=== PATIENT | male | born 1965 | race Caucasian/White ===

== ENCOUNTER 2017-01-05 20:10 | Inpatient (IN) | payer MEDICAID ==
[~2017-01-05] VITALS: Ht 180.3 cm; Wt 122.0 kg
[~2017-01-05 20:10] MED LIST: ALBU18; ASPI81CH43 PO; BENA5TAB5; METF-371; METO50TA7; NOR10T; POTA-167; PRAS10TA6; SIMV20TA90; TRAM-297
[2017-01-05 20:45] LABS: Basophils # (auto) 0.1 uL; Basophils % (auto) 0.6 % (0.0-2.0); CONDITION Y; DEFINITIVE SEE PRINTOUT; Eosinophils # (auto) 0.8 uL; Eosinophils % (auto) 8.3 % (0.0-7.0); Hematocrit 47.3 % (41.0-53.0); Hemoglobin 15.7 g/dL (13.5-17.5); Lymphocytes # (auto) 3.2 uL; Lymphocytes % (auto) 31.9 % (10.0-50.0); Mean Corpuscular Hemoglobin 29.6 pg (28.0-32.0); Mean Corpuscular Hgb Conc. 33.2 g/dL (32.0-36.0); Mean Corpuscular Volume 89.2 fL (80.0-100.0); Mean Platelet Volume 9.8 fL (7.4-10.4); Monocytes # (auto) 0.8 uL; Monocytes % (auto) 8.2 % (0.0-12.0); Neutrophils # (auto) 5.2 uL; Platelet Count (auto) 299 10^3/uL (140-450); Red Cell Distribution Width 13.1 % (11.6-16.0); White Blood Cell 10.1 10^3/uL (4.4-10.8)
[2017-01-05 21:08] LABS: INR 1.01 (0.9-1.15); Partial Thromboplastin Time 34.5 sec (22.64-33.71)
[2017-01-05 21:21] LABS: Albumin 3.7 g/dL (3.4-5.0); Anion Gap 10 (5-15); Aspartate Aminotransferase 28 U/L (15-37); BUN/Creatinine Ratio 10.5; Blood Urea Nitrogen 10 mg/dL (7-18); Calcium 8.5 mg/dL (8.5-10.1); Carbon Dioxide 26 mmol/L (21-32); Chloride 107 mmol/L (98-107); GFR African American 107 mL/min; GFR Non-African American 88 mL/min; Glucose 119 mg/dL (74-106); Magnesium 2.4 mg/dL (1.6-2.6); Potassium 4.1 mmol/L (3.5-5.1); Sodium 143 mmol/L (136-145)
[2017-01-05 21:28] LABS: Alkaline Phosphatase 59 U/L (45-117); Bilirubin, Total 0.4 mg/dL (0.2-1.0); Total Protein 7.3 g/dL (6.4-8.2)
[2017-01-05] MEDS ORDERED: MORPHINE SULFATE 4 MG/ML SYRG IV ONE (21:45)
[2017-01-05] MEDS ORDERED: ASPirin 81 mg TAB PO ONE (21:45)
[2017-01-05] MEDS ORDERED: NITROGLYCERIN 0.4 MG SL TAB SL PRN (21:45)
[2017-01-06] MEDS ORDERED: IPRATROPIUM BROM 0.5 MG/2.5ML INH SOL NEB ONE
[2017-01-06] MEDS ORDERED: ALBUTEROL SULF 2.5 MG/0.5ML(0.5%) NEB SOLN NEB ONE
[2017-01-06] MEDS ORDERED: LORazepam 0.5 MG TAB PO PRN (00:45)
[2017-01-06] MEDS ORDERED: ONDANSETRON HCL 4 MG/2 ML VIAL IV PRN (00:45)
[2017-01-06] MEDS ORDERED: LACTULOSE 20Gm/30ML SOLN PO PRN (00:45)
[2017-01-06] MEDS ORDERED: MORPHINE SULFATE 4 MG/ML SYRG IV PRN ×2 (00:45)
[2017-01-06] MEDS ORDERED: NITROGLYCERIN 0.4 MG SL TAB SL PRN (00:45)
[2017-01-06] MEDS ORDERED: DEXTROSE (50%) 50ML SYRG IV PRN (00:45)
[2017-01-06] MEDS ORDERED: ACETAMINOPHEN 500 MG TAB PO PRN (00:45)
[2017-01-06] MEDS: SODIUM CHLORIDE 0.9% 1,000 ML IV SCH ×2 (01:11→13:58)
[2017-01-06] MEDS: HYDROcodone-ACET 5/325MG TAB PO PRN ×3 (02:10→18:30)
[2017-01-06 02:30] VITALS: BP 136/92
[2017-01-06 02:44] LABS: Cholesterol 97 mg/dL (< 200); HDL Cholesterol 45 mg/dL (40-59); LDL Cholesterol 47 mg/dL (< 100); Triglycerides 120 mg/dL (< 150)
[2017-01-06] MEDS ORDERED: ASPI-231 PO (03:51)
[2017-01-06] MEDS ORDERED: BENA5TAB5 PO (03:51)
[2017-01-06] MEDS ORDERED: HYDR-4072 PO (03:51)
[2017-01-06] MEDS ORDERED: METO50TA7 PO (03:51)
[2017-01-06] MEDS ORDERED: SIMV10TA84 PO (03:51)
[2017-01-06 05:00] VITALS: BP 115/69
[2017-01-06 05:14] LABS: Urine Bilirubin Negative (Negative); Urine Blood Negative /uL (Negative); Urine Color Yellow (Yellow); Urine Glucose Normal (Normal); Urine Mucus FEW (None Seen); Urine Nitrite Negative (Negative); Urine RBC 2 /hpf (0 - 3); Urine Squamous Epithelial Cell FEW /hpf (<5); Urine pH 5.5 (5.0-8.0)
[2017-01-06 05:15] LABS: Urine Ketone 1+ (Negative)
[2017-01-06] MEDS: ACCU-CHEK COMFORT CURVE STRIP VI SCH ×3 (06:38→17:00)
[2017-01-06] MEDS: InsuLIN REG 1unit/0.01ml Soln (100units/ml) SC SCH ×3 (06:38→17:00)
[2017-01-06 09:00] VITALS: BP 136/82
[2017-01-06] MEDS ORDERED: METOPROLOL SUCCINATE XL 50 MG TAB PO SCH (10:00)
[2017-01-06] MEDS ORDERED: PANTOPRAZOLE 40 MG TAB PO SCH (10:00)
[2017-01-06] MEDS ORDERED: ASPirin 81 mg TAB PO SCH ×2 (10:00)
[2017-01-06 13:00] VITALS: BP 126/76
[2017-01-06 17:00] VITALS: BP 126/88
[2017-01-06 18:15] VITALS: BP 126/88
[2017-01-06] MEDS ORDERED: ATORVASTATIN 20 MG TAB PO SCH (22:00)
== END 2017-01-06 17:00 | disposition home or self-care (01) | DRG 198 ==
LOC: ER 20:11 → TELE 20:12 → TELE-CENTR 01-06 02:25 → CENTRAL 01-06 02:30 → TELE-CENTR 01-06 02:30
PROVIDERS: ADMIT Internal Medicine; ATTEND Internal Medicine
DX: R07.9 Chest pain, unspecified (principal); I25.10 Atherosclerotic heart disease of native coronary artery without angina pectoris; I11.9 Hypertensive heart disease without heart failure; K27.9 Peptic ulcer, site unspecified, unspecified as acute or chronic, without hemorrhage or perforation; E78.5 Hyperlipidemia, unspecified; K21.9 Gastro-esophageal reflux disease without esophagitis; E11.9 Type 2 diabetes mellitus without complications; J45.909 Unspecified asthma, uncomplicated; Z79.82 Long term (current) use of aspirin; Z79.84 Long term (current) use of oral hypoglycemic drugs; Z79.899 Other long term (current) drug therapy; Z82.49 Family history of ischemic heart disease and other diseases of the circulatory system; Z95.5 Presence of coronary angioplasty implant and graft
CPT/HCPCS: 36415; 71020; 74176; 80053; 80061; 80307; 81001; 82550; 82962; 83036; 83735; 84443; 84484; 85025; 85379; 85610; 85652; 85730; 86141; 93005; 94640; 96374

== ENCOUNTER 2017-01-15 09:14 | Emergency (ER) | payer MEDICAID ==
[~2017-01-15] VITALS: Ht 180.3 cm; Wt 122.9 kg
[~2017-01-15 09:14] MED LIST changes: +ASPI-231 PO; +BENA5TAB5 PO; +HYDR-4072 PO; +METO50TA7 PO; +SIMV10TA84 PO
[2017-01-15 09:55] LABS: Basophils # (auto) 0 uL; Basophils % (auto) 0.5 % (0.0-2.0); CONDITION Y; Eosinophils # (auto) 0.7 uL; Eosinophils % (auto) 8.3 % (0.0-7.0); Hematocrit 47.6 % (41.0-53.0); Hemoglobin 16.3 g/dL (13.5-17.5); Lymphocytes # (auto) 1.7 uL; Lymphocytes % (auto) 20.3 % (10.0-50.0); Mean Corpuscular Hgb Conc. 34.1 g/dL (32.0-36.0); Mean Corpuscular Volume 88.1 fL (80.0-100.0); Mean Platelet Volume 10.1 fL (7.4-10.4); Monocytes # (auto) 0.6 uL; Neutrophils # (auto) 5.2 uL; Neutrophils % (auto) 63.9 % (37.0-80.0); Platelet Count (auto) 315 10^3/uL (140-450); Red Cell Distribution Width 12.9 % (11.6-16.0); White Blood Cell 8.1 10^3/uL (4.4-10.8)
[2017-01-15 10:13] LABS: Albumin 3.8 g/dL (3.4-5.0); BUN/Creatinine Ratio 14.3; Bilirubin, Total 0.5 mg/dL (0.2-1.0); Total Protein 7.5 g/dL (6.4-8.2)
[2017-01-15 10:27] LABS: Urine Bilirubin Negative (Negative); Urine Blood Negative /uL (Negative); Urine Color Yellow (Yellow); Urine Glucose Normal (Normal); Urine Ketone Negative (Negative); Urine Mucus FEW (None Seen); Urine Nitrite Negative (Negative); Urine RBC 1 /hpf (0 - 3); Urine Squamous Epithelial Cell FEW /hpf (<5)
[2017-01-15] MEDS ORDERED: SODIUM CHLORIDE 0.9% 1,000 ML IVB ONE (10:34)
[2017-01-15] MEDS ORDERED: KETOROLAC TROMETH 30 MG/ML 1ML VIAL IV ONE (10:45)
[2017-01-15 11:25] VITALS: BP 123/71
== END 2017-01-15 17:42 | disposition home or self-care (01) ==
LOC: ER 09:14 → EDBD 09:14 → ER 17:42
DX: M54.9 Dorsalgia, unspecified (principal); R10.9 Unspecified abdominal pain; E11.9 Type 2 diabetes mellitus without complications; I10 Essential (primary) hypertension; I25.10 Atherosclerotic heart disease of native coronary artery without angina pectoris; J45.909 Unspecified asthma, uncomplicated; K21.9 Gastro-esophageal reflux disease without esophagitis; Z87.11 Personal history of peptic ulcer disease; Z98.61 Coronary angioplasty status
CPT/HCPCS: 36415; 74176; 80053; 81001; 85025; 96361; 96374; 99285; J1885; J7030

== ENCOUNTER 2017-08-19 14:53 | Emergency (ER) | payer MEDICAID ==
[~2017-08-19] VITALS: Ht 180.3 cm; Wt 117.9 kg
[2017-08-19 15:13] VITALS: BP 127/81
[2017-08-19 15:31] LABS: Basophils # (auto) 0.1 uL; Basophils % (auto) 0.6 % (0.0-2.0); Eosinophils # (auto) 0.7 uL; Eosinophils % (auto) 7.8 % (0.0-7.0); Hematocrit 47.8 % (41.0-53.0); Hemoglobin 16.3 g/dL (13.5-17.5); Lymphocytes # (auto) 2.1 uL; Mean Corpuscular Hemoglobin 30.8 pg (28.0-32.0); Mean Corpuscular Hgb Conc. 34.1 g/dL (32.0-36.0); Mean Corpuscular Volume 90.3 fL (80.0-100.0); Monocytes # (auto) 0.6 uL; Monocytes % (auto) 7.4 % (0.0-12.0); Neutrophils # (auto) 5.2 uL; Neutrophils % (auto) 60.2 % (37.0-80.0); Platelet Count (auto) 254 10^3/uL (140-450); Red Blood Cells 5.29 10^6/uL (4.5-5.90); Red Cell Distribution Width 12.6 % (11.8-14.3); White Blood Cell 8.6 10^3/uL (4.4-10.8)
[2017-08-19 15:51] LABS: Alanine Aminotransferase 42 U/L (16-61); Albumin 3.8 g/dL (3.4-5.0); Anion Gap 9 (5-15); Aspartate Aminotransferase 28 U/L (15-37); BUN/Creatinine Ratio 7.3; Blood Urea Nitrogen 7 mg/dL (7-18); Calcium 8.8 mg/dL (8.5-10.1); Carbon Dioxide 24 mmol/L (21-32); Chloride 107 mmol/L (98-107); GFR African American 106 mL/min; GFR Non-African American 87 mL/min; Glucose 98 mg/dL (74-106); Potassium 4.1 mmol/L (3.5-5.1); Sodium 140 mmol/L (136-145)
[2017-08-19 15:56] LABS: Alkaline Phosphatase 45 U/L (45-117); Bilirubin, Total 0.5 mg/dL (0.2-1.0); Total Protein 7.5 g/dL (6.4-8.2)
[2017-08-19] MEDS ORDERED: ASPirin 81 mg TAB PO ONE (16:00)
[2017-08-19] MEDS ORDERED: PANTOPRAZOLE 40 MG/10 ML VIAL IV ONE (17:15)
== END 2017-08-19 18:58 | disposition home or self-care (01) ==
LOC: EDBD 14:53 → ER 14:53
DX: R07.89 Other chest pain (principal); I25.10 Atherosclerotic heart disease of native coronary artery without angina pectoris; I10 Essential (primary) hypertension; E11.9 Type 2 diabetes mellitus without complications; J45.909 Unspecified asthma, uncomplicated; K21.9 Gastro-esophageal reflux disease without esophagitis; E78.5 Hyperlipidemia, unspecified; Z79.82 Long term (current) use of aspirin; Z87.11 Personal history of peptic ulcer disease
CPT/HCPCS: 36415; 71046; 80053; 83735; 84484; 85025; 93005; 94761; 96374; 99285; C9113

== ENCOUNTER 2018-06-18 02:17 | Emergency (ER) | payer MEDICAID ==
[~2018-06-18] VITALS: Ht 180.3 cm; Wt 90.7 kg
[~2018-06-18 02:17] MED LIST changes: +MET5XLT; +MET5XLT PO; -METO50TA7; -METO50TA7 PO
[2018-06-18 02:40] VITALS: BP 125/85
== END 2018-06-18 04:56 | disposition home or self-care (01) ==
LOC: EDBD 02:17 → ER 02:19
DX: K06.8 Other specified disorders of gingiva and edentulous alveolar ridge (principal); I10 Essential (primary) hypertension; J45.909 Unspecified asthma, uncomplicated; E11.9 Type 2 diabetes mellitus without complications; K21.9 Gastro-esophageal reflux disease without esophagitis; E78.5 Hyperlipidemia, unspecified; I25.810 Atherosclerosis of coronary artery bypass graft(s) without angina pectoris; Z87.11 Personal history of peptic ulcer disease; Z79.82 Long term (current) use of aspirin; Z79.899 Other long term (current) drug therapy

== ENCOUNTER 2021-08-17 19:40 | Inpatient (IN) | payer MEDICAID ==
[~2021-08-17] VITALS: Ht 180.3 cm; Wt 108.8 kg
[~2021-08-17 19:40] MED LIST changes: -ASPI-231 PO; +ASPI1TAB20 PO; -BENA5TAB5; -BENA5TAB5 PO; +BENA5TAB9; +BENA5TAB9 PO; -MET5XLT; -MET5XLT PO; +METO-6; +METO-6 PO; +PRAS10TA18; -PRAS10TA6; +SIMV20TA2; -SIMV20TA90
[2021-08-17 21:19] LABS: Basophils # (auto) 0.1 10 ^3/uL (0-0.2); Basophils % (auto) 0.8 % (0.0-2.0); Eosinophils # (auto) 0.7 10 ^3/uL (0-0.8); Eosinophils % (auto) 7.3 % (0.0-7.0); Hematocrit 47.2 % (41.0-53.0); Hemoglobin 16.3 g/dL (13.5-17.5); Lymphocytes # (auto) 2.1 10 ^3/uL (0.4-5.4); Lymphocytes % (auto) 23.6 % (10.0-50.0); Mean Corpuscular Hemoglobin 31.3 pg (28.0-32.0); Mean Corpuscular Hgb Conc. 34.6 g/dL (32.0-36.0); Mean Corpuscular Volume 90.6 fL (80.0-100.0); Monocytes % (auto) 10.5 % (0.0-12.0); Neutrophils # (auto) 5.3 10 ^3/uL (1.6-8.6); Neutrophils % (auto) 57.8 % (37.0-80.0); Nucleated Red Blood Cells % 0.1 %; Red Blood Cells 5.21 10^6/uL (4.5-5.90); Red Cell Distribution Width 12.5 % (11.8-14.3); White Blood Cell 9.1 10^3/uL (4.4-10.8)
[2021-08-17 21:29] LABS: Albumin 3.6 g/dL (3.4-5.0); BUN/Creatinine Ratio 9.7; Potassium 4.2 mmol/L (3.5-5.1)
[2021-08-17 21:34] LABS: Bilirubin, Total 0.5 mg/dL (0.2-1.0); Total Protein 6.9 g/dL (6.4-8.2)
[2021-08-18] MEDS ORDERED: DOCUSATE SOD 100 MG CAP PO PRN (00:30)
[2021-08-18] MEDS ORDERED: DEXTROSE (50%) 50ML SYRG IV PRN (00:30)
[2021-08-18] MEDS ORDERED: ACETAMINOPHEN 325 MG TAB PO PRN (00:30)
[2021-08-18] MEDS ORDERED: ONDANSETRON HCL 4 MG/2 ML VIAL IV PRN (00:30)
[2021-08-18] MEDS ORDERED: NITROGLYCERIN 0.4 MG SL TAB SL PRN (00:30)
[2021-08-18] MEDS ORDERED: MORPHINE SULFATE INJECTION 2 MG/ML SYRG ONE (02:46)
[2021-08-18] MEDS ORDERED: ONDANSETRON HCL 4 MG/2 ML VIAL ONE (02:46)
[2021-08-18] MEDS: MORPHINE SULFATE INJECTION 2 MG/ML SYRG IV PRN ×2 (03:06→15:00)
[2021-08-18] MEDS ORDERED: HYDROcodone-ACET 5/325MG TAB ONE (04:29)
[2021-08-18] MEDS: HYDROcodone-ACET 5/325MG TAB PO PRN ×2 (04:54→12:23)
[2021-08-18] MEDS: SODIUM CHLOR 0.9% PF (SALINE LOCK) 10ML VIAL/SYR IV SCH ×2 (06:00→12:06)
[2021-08-18] MEDS: InsuLIN REG 1unit/0.01ml Soln (100units/ml) SC SCH ×3 (06:38→17:00)
[2021-08-18 07:10] VITALS: BP 118/76
[2021-08-18] MEDS: ACCU-CHEK COMFORT CURVE STRIP VI SCH ×3 (07:10→17:00)
[2021-08-18 08:00] VITALS: BP 118/76
[2021-08-18] MEDS ORDERED: INFLUENZA QUAD 2021-2022 0.5 ML SYRG IM ONE (08:15)
[2021-08-18] MEDS ORDERED: BENA40TA8 PO (08:15)
[2021-08-18] MEDS ORDERED: CARV6.2551 PO (08:15)
[2021-08-18] MEDS ORDERED: TRIA75TA55 PO (08:15)
[2021-08-18] MEDS ORDERED: ADENOSINE 91 MG in GIVE UN-DILUTED 0 ML IV ONE (08:45)
[2021-08-18 09:00] VITALS: BP 118/76
[2021-08-18] MEDS ORDERED: ASPirin 81 mg TAB PO SCH (10:00)
[2021-08-18] MEDS ORDERED: METOPROLOL TARTRATE 50 MG TAB PO SCH (10:00)
[2021-08-18] MEDS ORDERED: FAMOTIDINE (10MG/ML) 2ML VL IV SCH (10:00)
[2021-08-18] MEDS ORDERED: ENOXAPARIN SOD 40 MG/0.4 ML SYRINGE SC SCH (10:00)
[2021-08-18 12:14] LABS: Basophils # (auto) 0.1 10 ^3/uL (0-0.2); Basophils % (auto) 0.6 % (0.0-2.0); Eosinophils # (auto) 0.5 10 ^3/uL (0-0.8); Eosinophils % (auto) 6.3 % (0.0-7.0); Hematocrit 45.2 % (41.0-53.0); Hemoglobin 15.5 g/dL (13.5-17.5); Lymphocytes % (auto) 23.7 % (10.0-50.0); Mean Corpuscular Hgb Conc. 34.2 g/dL (32.0-36.0); Mean Corpuscular Volume 90.6 fL (80.0-100.0); Monocytes # (auto) 0.7 10 ^3/uL (0-1.3); Monocytes % (auto) 8.4 % (0.0-12.0); Neutrophils # (auto) 5.2 10 ^3/uL (1.6-8.6); Red Blood Cells 4.99 10^6/uL (4.5-5.90); Red Cell Distribution Width 12.6 % (11.8-14.3); White Blood Cell 8.5 10^3/uL (4.4-10.8)
[2021-08-18 12:24] LABS: Potassium 4.1 mmol/L (3.5-5.1)
[2021-08-18 12:35] LABS: Albumin 3.7 g/dL (3.4-5.0); BUN/Creatinine Ratio 12.3; Bilirubin, Total 0.9 mg/dL (0.2-1.0); Calcium 8.7 mg/dL (8.5-10.1); Total Protein 6.8 g/dL (6.4-8.2)
[2021-08-18 12:43] LABS: Cholesterol 186 mg/dL (< 200); HDL Cholesterol 42 mg/dL (40-59); LDL Cholesterol 110 mg/dL (< 100); Triglycerides 196 mg/dL (< 150)
[2021-08-18 13:00] VITALS: BP 127/85
[2021-08-18 15:19] VITALS: BP 127/85
[2021-08-18 15:30] VITALS: BP 125/64
[2021-08-18] MEDS ORDERED: ATORVASTATIN 20 MG TAB PO SCH (22:00)
== END 2021-08-18 18:00 | disposition home or self-care (01) | DRG 207 ==
LOC: EDBD 19:40 → ER 19:40 → TELE 08-18 00:20 → TELE-WESTW 08-18 07:08
PROVIDERS: ADMIT Nurse Practitioner Family; ATTEND Hospitalist
DX: R00.2 Palpitations (principal); E11.9 Type 2 diabetes mellitus without complications; I25.10 Atherosclerotic heart disease of native coronary artery without angina pectoris; E66.01 Morbid (severe) obesity due to excess calories; I49.3 Ventricular premature depolarization; E78.00 Pure hypercholesterolemia, unspecified; E78.5 Hyperlipidemia, unspecified; I10 Essential (primary) hypertension; J45.909 Unspecified asthma, uncomplicated; Z82.49 Family history of ischemic heart disease and other diseases of the circulatory system; Z68.33 Body mass index [BMI] 33.0-33.9, adult; Z87.11 Personal history of peptic ulcer disease; Z87.891 Personal history of nicotine dependence; Z95.5 Presence of coronary angioplasty implant and graft; Z90.49 Acquired absence of other specified parts of digestive tract
CPT/HCPCS: 36415; 71045; 78452; 80053; 80061; 82962; 83036; 83880; 84443; 84484; 85025; 87426; 93005; 93017; 93306; 96374; G0378; J0153; J2405; J3490

== ENCOUNTER 2021-09-27 08:51 | Day surgery (SDC) | payer MEDICAID ==
[2021-09-27] VITALS (9 sets, daily range): BP systolic 90–110; BP diastolic 60–71
[~2021-09-27] VITALS: Ht 180.3 cm; Wt 113.4 kg
[~2021-09-27 08:51] MED LIST changes: -ASPI81CH43 PO; +BENA40TA8 PO; -BENA5TAB9; -BENA5TAB9 PO; +CARV12.544 PO; +CARV6.2551 PO; -HYDR-4072 PO; +HYDR-4902 PO; -METF-371; -METO-6; -METO-6 PO; -NOR10T; -POTA-167; -PRAS10TA18; -SIMV10TA84 PO; +TRIA75TA55 PO
[2021-09-27] MEDS ORDERED: ANGIOMAX 250 MG VIAL IV ONE (10:16)
[2021-09-27] MEDS ORDERED: VERAPAMIL 2.5MG/ML INJ 2ML VIAL IV ONE (10:16)
[2021-09-27] MEDS ORDERED: HEPARIN SODIUM (PORCINE) 5000 UNITS/ML 1ML VIAL ONE (10:16)
[2021-09-27] MEDS ORDERED: LIDOCAINE 2%HCL (LOCAL ANESTH.) INJ 10ml MDV ONE (10:17)
[2021-09-27] MEDS ORDERED: MIDAZOLAM HCL 2MG/2ML 2ml VIAL (1mg/ml) ONE (10:17)
[2021-09-27] MEDS ORDERED: fentaNYL CITRATE 100 MCG/2 ML VL ONE (10:17)
[2021-09-27] MEDS ORDERED: SODIUM CHL 0.9% 0 ML ONE (10:17)
[2021-09-27] MEDS ORDERED: IODIXANOL 320MG/ML 100ML BTL IV ONE (10:30)
== END 2021-09-27 13:03 | disposition home or self-care (01) ==
LOC: CATH 08:51
PROVIDERS: ATTEND Internal Medicine
DX: R94.39 Abnormal result of other cardiovascular function study (principal); I25.118 Atherosclerotic heart disease of native coronary artery with other forms of angina pectoris; I25.5 Ischemic cardiomyopathy; I50.42 Chronic combined systolic (congestive) and diastolic (congestive) heart failure; G47.30 Sleep apnea, unspecified; F32.A Depression, unspecified; Z82.2 Family history of deafness and hearing loss; Z83.518 Family history of other specified eye disorder; Z87.891 Personal history of nicotine dependence; Z95.5 Presence of coronary angioplasty implant and graft; Z81.8 Family history of other mental and behavioral disorders; Z82.49 Family history of ischemic heart disease and other diseases of the circulatory system; Z83.42 Family history of familial hypercholesterolemia; Z83.3 Family history of diabetes mellitus; Z82.61 Family history of arthritis; Z84.89 Family history of other specified conditions
CPT/HCPCS: 93458; 99152; J2001; J2250; Q9967

== ENCOUNTER → 2023-06-04 | Outpatient (CLI) | payer MEDICAID ==
[~2023-06-04] MED LIST changes: +BENA40TA70 PO; -BENA40TA8 PO; +SIMV-270; -SIMV20TA2
== END | disposition home or self-care (01) ==
LOC: XYW 13:54
PROVIDERS: ATTEND Student in an Organized Health Care Education/Training Program
DX: I51.7 Cardiomegaly (principal); R06.02 Shortness of breath
CPT/HCPCS: 93306

== ENCOUNTER → 2023-06-18 | Outpatient (CLI) | payer MEDICAID ==
[2023-06-18 15:09] LABS: Basophils # (auto) 0.1 10 ^3/uL (0-0.2); Basophils % (auto) 0.9 % (0.0-2.0); Eosinophils # (auto) 1.2 10 ^3/uL (0-0.8); Eosinophils % (auto) 11.4 % (0.0-7.0); Hematocrit 50.5 % (41.0-53.0); Hemoglobin 16.7 g/dL (13.5-17.5); Lymphocytes # (auto) 1.7 10 ^3/uL (0.4-5.4); Lymphocytes % (auto) 16.2 % (10.0-50.0); Mean Corpuscular Hemoglobin 29.5 pg (28.0-32.0); Mean Corpuscular Hgb Conc. 33.1 g/dL (32.0-36.0); Mean Corpuscular Volume 89.2 fL (80.0-100.0); Monocytes # (auto) 0.7 10 ^3/uL (0-1.3); Neutrophils # (auto) 6.8 10 ^3/uL (1.6-8.6); Neutrophils % (auto) 64.5 % (37.0-80.0); Nucleated Red Blood Cells % 0.1 %; Red Blood Cells 5.66 10^6/uL (4.5-5.90); Red Cell Distribution Width 12.6 % (11.8-14.3); White Blood Cell 10.5 10^3/uL (4.4-10.8)
[2023-06-18 15:45] LABS: Alanine Aminotransferase 27 U/L (7-40); Albumin 4.4 g/dL (3.2-4.8); Alkaline Phosphatase 66 U/L (46-116); Anion Gap 7 (5-15); Aspartate Aminotransferase 17 U/L (13-40); BUN/Creatinine Ratio 10.3 (10.0-20.0); Bilirubin, Total 1.2 mg/dL (0.2-1.0); Blood Urea Nitrogen 8 mg/dL (9-23); Calcium 9.3 mg/dL (8.5-10.1); Carbon Dioxide 25 mmol/L (20-30); Chloride 106 mmol/L (98-107); Cholesterol 108 mg/dL (< 200); Glucose 104 mg/dL (74-106); HDL Cholesterol 43 mg/dL (40-59); LDL Cholesterol 51 mg/dL (< 100); Potassium 4.2 mmol/L (3.5-5.1); Sodium 138 mmol/L (136-145); Total Protein 6.8 g/dL (5.7-8.2); Triglycerides 100 mg/dL (< 150)
[2023-06-18 15:55] LABS: Free T3 4.52 pg/mL (2.3-4.2); Free T4 (Free Thyroxine) 0.98 ng/dL (0.89-1.76); T3 Total 1.38 ng/mL (0.60-1.81)
== END | disposition home or self-care (01) ==
LOC: LAB 14:48
PROVIDERS: ATTEND Student in an Organized Health Care Education/Training Program
DX: I10 Essential (primary) hypertension (principal); E78.5 Hyperlipidemia, unspecified
CPT/HCPCS: 36415; 80053; 80061; 82947; 84439; 84443; 84480; 84481; 85025

== ENCOUNTER 2023-08-05 21:03 | Emergency (ER) | payer MEDICAID ==
[~2023-08-05] VITALS: Ht 170.2 cm; Wt 81.0 kg
[2023-08-05] MEDS ORDERED: SODIUM CHLORIDE 0.9% 500 ML IVB ONE (21:30)
[2023-08-05] MEDS ORDERED: PANTOPRAZOLE 40 MG/10 ML VIAL INJ IV ONE (21:30)
[2023-08-05 21:42] LABS: Basophils # (auto) 0.1 10 ^3/uL (0-0.2); Basophils % (auto) 1.1 % (0.0-2.0); Eosinophils # (auto) 1.6 10 ^3/uL (0-0.8); Eosinophils % (auto) 14.1 % (0.0-7.0); Hemoglobin 17.2 g/dL (13.5-17.5); Lymphocytes # (auto) 2.3 10 ^3/uL (0.4-5.4); Lymphocytes % (auto) 20.2 % (10.0-50.0); Mean Corpuscular Hemoglobin 30.2 pg (28.0-32.0); Mean Corpuscular Hgb Conc. 32.4 g/dL (32.0-36.0); Mean Corpuscular Volume 93.4 fL (80.0-100.0); Monocytes # (auto) 0.9 10 ^3/uL (0-1.3); Neutrophils # (auto) 6.4 10 ^3/uL (1.6-8.6); Neutrophils % (auto) 56.6 % (37.0-80.0); Nucleated Red Blood Cells % 0.1 %; Red Blood Cells 5.68 10^6/uL (4.5-5.90); Red Cell Distribution Width 13.9 % (11.8-14.3); White Blood Cell 11.3 10^3/uL (4.4-10.8)
[2023-08-05 22:00] LABS: Alanine Aminotransferase 26 U/L (7-40); Albumin 4.3 g/dL (3.2-4.8); Alkaline Phosphatase 58 U/L (46-116); Anion Gap 5 (5-15); Aspartate Aminotransferase 25 U/L (13-40); BUN/Creatinine Ratio 9.5 (10.0-20.0); Blood Urea Nitrogen 7 mg/dL (9-23); Calcium 9.8 mg/dL (8.7-10.4); Carbon Dioxide 25 mmol/L (20-30); Chloride 109 mmol/L (98-107); Glucose 112 mg/dL (74-106); Lipase 45 U/L (12-53); Potassium 4.4 mmol/L (3.5-5.1); Sodium 139 mmol/L (136-145)
[2023-08-05 22:01] LABS: Bilirubin, Total 0.8 mg/dL (0.2-1.0)
[2023-08-05] MEDS ORDERED: PANT40TA2 PO (22:47)
[2023-08-06 00:41] VITALS: PULSE 75; RESP 16; O2SAT 100
[2023-08-06 00:47] VITALS: BP 110/76; PULSE 75; RESP 16; TEMP 98; O2SAT 100
== END 2023-08-06 01:00 | disposition home or self-care (01) ==
LOC: ER 21:03 → EDBD 21:03 → ER 08-06 01:00
DX: K21.9 Gastro-esophageal reflux disease without esophagitis (principal); I10 Essential (primary) hypertension; I25.10 Atherosclerotic heart disease of native coronary artery without angina pectoris; E11.9 Type 2 diabetes mellitus without complications; E78.5 Hyperlipidemia, unspecified; Z79.82 Long term (current) use of aspirin; Z79.899 Other long term (current) drug therapy
CPT/HCPCS: 36415; 74176; 80053; 83690; 84484; 85025; 93005; 96374; 99285; C9113; J7040

== ENCOUNTER → 2023-08-21 | Outpatient (CLI) | payer MEDICAID ==
[~2023-08-21] VITALS: Ht 30.5 cm; Wt 0.5 kg
[~2023-08-21] MED LIST changes: +PANT40TA2 PO
[2023-08-21] MEDS: DOBUTamine 1000MCG/ML 250 ML IV ONE (10:26)
[2023-08-21] MEDS: ATROPINE SULF 0.5 MG/5ML SYR ONE (10:26)
[2023-08-21] MEDS: METOPROLOL TARTRATE 1MG/1ML-5ML VIAL IV ONE (10:27)
[2023-08-21] MEDS: DOBUTamine 1000MCG/ML 100 ML IV ONE (10:28)
[2023-08-21 10:42] VITALS: BP 112/73
== END | disposition home or self-care (01) ==
LOC: XYW 08:57
PROVIDERS: ATTEND Student in an Organized Health Care Education/Training Program
DX: I25.2 Old myocardial infarction (principal); I25.5 Ischemic cardiomyopathy; R06.02 Shortness of breath; R07.9 Chest pain, unspecified; E78.5 Hyperlipidemia, unspecified
CPT/HCPCS: 78452; 93017; A9500; J0461; J1250

== ENCOUNTER 2024-06-16 07:50 | Day surgery (SDC) | payer MEDICAID ==
[2024-06-15 16:07] LABS: Basophils # (auto) 0.1 10 ^3/uL (0-0.2); Eosinophils # (auto) 0.9 10 ^3/uL (0-0.8); Eosinophils % (auto) 11.4 % (0.0-7.0); Hematocrit 47.4 % (41.0-53.0); Hemoglobin 15.8 g/dL (13.5-17.5); Lymphocytes # (auto) 1.7 10 ^3/uL (0.4-5.4); Lymphocytes % (auto) 22.5 % (10.0-50.0); Mean Corpuscular Hgb Conc. 33.3 g/dL (32.0-36.0); Monocytes # (auto) 0.7 10 ^3/uL (0-1.3); Monocytes % (auto) 9.6 % (0.0-12.0); Neutrophils # (auto) 4.3 10 ^3/uL (1.6-8.6); Neutrophils % (auto) 55.5 % (37.0-80.0); Platelet Count (auto) 243 10^3/uL (140-450); Red Blood Cells 5.26 10^6/uL (4.5-5.90); White Blood Cell 7.7 10^3/uL (4.4-10.8)
[2024-06-15 16:21] LABS: INR 1.1 (0.9-1.15); Partial Thromboplastin Time 33.8 SEC (24.5-34.5); Prothrombin Time 11.6 sec (9.3-11.8)
[2024-06-15 16:31] LABS: Alanine Aminotransferase 17 U/L (7-40); Albumin 4.2 g/dL (3.2-4.8); Alkaline Phosphatase 52 U/L (46-116); Anion Gap 6 (5-15); Aspartate Aminotransferase 15 U/L (13-40); BUN/Creatinine Ratio 7.5 (10.0-20.0); Calcium 9.2 mg/dL (8.7-10.4); Carbon Dioxide 28 mmol/L (20-31); Glucose 106 mg/dL (74-106); Potassium 4.2 mmol/L (3.5-5.1); Sodium 145 mmol/L (136-145)
[2024-06-15 16:33] LABS: Bilirubin, Total 0.5 mg/dL (0.2-1.0); Total Protein 6.4 g/dL (5.7-8.2)
[2024-06-15 16:36] LABS: Blood Urea Nitrogen 6 mg/dL (9-23); Chloride 111 mmol/L (98-107)
[2024-06-16] VITALS (8 sets, daily range): BP systolic 96–132; BP diastolic 69–89; PULSE 66–75; RESP 11–15; TEMP 97.8; O2SAT 94–96
[~2024-06-16] VITALS: Ht 180.3 cm; Wt 109.3 kg
[~2024-06-16 07:50] MED LIST changes: -ASPI1TAB20 PO; +ASPI325T6 PO; +ATOR20TA PO; -BENA40TA70 PO; +CHOL20007 PO; +EMPA1TAB PO; +MECL-90 PO; +OMEP20TA PO; -PANT40TA2 PO; +SACU1TAB7 PO; -SIMV-270; +TIOT1AER IN; -TRAM-297; +TRAM50TA2 PO; -TRIA75TA55 PO
[2024-06-16] MEDS ORDERED: IODIXANOL 320MG/ML 100ML BTL IV ONE (09:09)
[2024-06-16] MEDS ORDERED: HEPARIN SODIUM (PORCINE) 5000 UNITS/ML 1ML VIAL ONE (09:36)
[2024-06-16] MEDS ORDERED: VERAPAMIL 2.5MG/ML INJ 2ML VIAL IV ONE (09:36)
[2024-06-16] MEDS ORDERED: fentaNYL CITRATE 100 MCG/2 ML VL ONE (09:36)
[2024-06-16] MEDS ORDERED: ANGIOMAX 250 MG VIAL IV ONE (09:36)
[2024-06-16] MEDS ORDERED: MIDAZOLAM HCL 2MG/2ML 2ml VIAL (1mg/ml) ONE (09:37)
[2024-06-16] MEDS ORDERED: SODIUM CHL 0.9% 0 ML ONE (09:37)
[2024-06-16] MEDS ORDERED: LIDOCAINE 2%HCL (LOCAL ANESTH.) INJ 20ML MDV ONE (09:37)
--- NOTE | 2024-06-16 10:21 | DVHOP2 ---
Operative Report -Cardiology Report Details Date: 06/16/24 Preop Diagnosis: Shortness of breath on exertion. With a positive stress test showing inferior wall ischemia versus diaphragmatic attenuation. Postop Diagnosis: Coronary angiography revealed widely patent stents in the left circumflex artery. No significant coronary artery disease was noted but sluggish flow involving all three territories. Aggressive medical therapy is warranted. Surgeon: Dheeraj Pineda MD Anesthesiologist: Conscious sedation using25 mcg of fentanyl as well as a mg IV midazolam. It was given under the direct supervision of myself the primary pipe cleaning machine operator as well as in the presence of attending nurses. Patient was monitored for total of35 minutes without obvious complication Anesthesia: Local Consent: The patient was informed of the risks and benefits of the procedure. These include but are not limited to complications of anesthesia, postoperative infection, incomplete relief of symptoms, recurrence of symptoms, damage to blood vessels, nerves and tendons, deep venous thrombosis, pulmonary embolism and possible need for repeat surgery in the future. Indications for Surgery: 58-year-old gentleman with a history of diabetes, hypertension, and hyperlipidemia, who presented to the clinic complaining of shortness of breath. He has past history of myocardial infarction 2010 into the up having two stents placed in the left circumflex vessel. His nuclear perfusion scan shows decreased uptake of tracer in the inferior wall with complete reversibility resting indicating underlying ischemia versus diaphragmatic attenuation. In addition to that, patient has mildly reduced left ventricular ejection fraction at 50%. He was booked today for coronary angiography given he has symptoms of shortness of breath positive nuclear scan showing inferior wall defect Name of Procedure Performed 1. Left heart catheterization with left ventricular end-diastolic pressure measurement. 2. Selective right and left coronary angiography utilizing right transradial. 3. Conscious sedation using25 mcg of fentanyl as well as a mg of midazolam. Procedure Details Procedure Details: Procedure note and vascular access: After informed consent was obtained, risks, benefits, complications, and alternatives were discussed in details with the patient who agrees to have the procedure done. At the beginning of the procedure, the right wrist and the right coronary artery were prepped and draped in regular sterile fashion. Patient received conscious sedation with25 mcg of fentanyl as well as a mg midazolam. Thereafter, he received a total of2 cc of 1% xylocaine to the right wrist area before a six Prydeinig sheath was placed using modified Seldinger technique without difficulty. A cocktail of 2.5 mg of verapamil as well as 100 mcg nitroglycerin were given intra-arterial to prevent vasospasm. After crossing the aortic arch 3000 heparin were given findings were as follows: 1. Left heart catheterization with left ventricular end-diastolic pressure measurement: With the help of a tiger five Prydeinig catheter as well as a J-tip wire we were able to cross the aortic valve measured left ventricular end-diastolic pressure which was quite elevated at 17 mm of mercury. There was no gradient across the aortic valve to indicate aortic valve stenosis. 2. Selective right and left coronary angiography utilizing right transradial approach: 1. Right coronary artery comes off the right coronary cusp it is mildly ectatic, it bifurcated distally into large posterior descending artery as well as large posterolateral branch, there was no significant stenosis but sluggish flow. 2. Left main comes off the left coronary cusp it is a large widely patent and it bifurcates distally into a large left anterior descending artery as well as a medium-sized left circumflex vessel. It has no significant atherosclerotic plaquing. 3. The left anterior descending artery it is a large vessel gives rise to two large diagonal branch, it has mild irregularity with no significant stenosis, there is also a sluggish flow to the distal part of the LAD. 4. The left circumflex vessel, is medium-sized it has two stents one in the proximal one of the mid segment both of which are widely patent there is mild InStent restenosis at 10% of the distal stent. Gives rise to two obtuse marginal branches without significant stenosis. Impression and plan: 1. Widely patent stent to the left circumflex vessel. 2. Sluggish flow involving the right and the left system,. 3. Quite elevated left ventricular end-diastolic pressure indicating diastolic heart dysfunction, patient would need to optimize medically with a blood pressure control. 4. Patient symptom likely due to microvascular disease versus diaphragmatic attenuation. Continue aggressive medical therapy, he would be discharged today from the day case unit, to be seen on follow-up in the clinic. Condition Good [facility] Clinical Frailty Scale CS Clinical Frailty Scale: Well Stress Test Stress Test Performed: Yes Test Type Performed: Stress Nuclear Stress Test Result: Positive Risk/Extent of Ischemia: Indeterminate Dominance Dominance: Right Disposition DHEERAJ PINEDA MD Jun 16, 2024 10:21
== END 2024-06-16 12:21 | disposition home or self-care (01) ==
LOC: CATH 07:50
PROVIDERS: ATTEND Student in an Organized Health Care Education/Training Program
DX: R94.39 Abnormal result of other cardiovascular function study (principal); T82.855A Stenosis of coronary artery stent, initial encounter; R06.02 Shortness of breath; I11.9 Hypertensive heart disease without heart failure; I20.9 Angina pectoris, unspecified; I25.2 Old myocardial infarction; E11.9 Type 2 diabetes mellitus without complications; E78.5 Hyperlipidemia, unspecified; Z95.5 Presence of coronary angioplasty implant and graft; Z87.09 Personal history of other diseases of the respiratory system; G47.30 Sleep apnea, unspecified; Z85.47 Personal history of malignant neoplasm of testis; F32.A Depression, unspecified; Z82.49 Family history of ischemic heart disease and other diseases of the circulatory system; Z82.5 Family history of asthma and other chronic lower respiratory diseases; Z83.42 Family history of familial hypercholesterolemia; Z81.0 Family history of intellectual disabilities; Z82.61 Family history of arthritis; Z83.49 Family history of other endocrine, nutritional and metabolic diseases; Z84.89 Family history of other specified conditions; Z80.42 Family history of malignant neoplasm of prostate; Y84.8 Other medical procedures as the cause of abnormal reaction of the patient, or of later complication, without mention of misadventure at the time of the procedure; Y92.89 Other specified places as the place of occurrence of the external cause
CPT/HCPCS: 36415; 80053; 85025; 85610; 85730; 93458; C1894; J1644; J2250; J3010; J7040; Q9967; 99152

== ENCOUNTER → 2024-11-06 | Outpatient (CLI) | payer MEDICAID ==
[2024-11-06 09:17] LABS: Urine Bacteria None Seen /hpf (None Seen)
[2024-11-06 09:20] LABS: Basophils # (auto) 0.1 10 ^3/uL (0-0.2); Basophils % (auto) 1.3 % (0.0-2.0); Eosinophils # (auto) 0.8 10 ^3/uL (0-0.8); Eosinophils % (auto) 10.8 % (0.0-7.0); Hematocrit 47.4 % (41.0-53.0); Hemoglobin 15.6 g/dL (13.5-17.5); Lymphocytes # (auto) 1.9 10 ^3/uL (0.4-5.4); Lymphocytes % (auto) 26.9 % (10.0-50.0); Mean Corpuscular Hgb Conc. 32.9 g/dL (32.0-36.0); Mean Corpuscular Volume 85.1 fL (80.0-100.0); Monocytes # (auto) 0.6 10 ^3/uL (0-1.3); Neutrophils # (auto) 3.6 10 ^3/uL (1.6-8.6); Platelet Count (auto) 243 10^3/uL (140-450); Red Blood Cells 5.57 10^6/uL (4.5-5.90); Red Cell Distribution Width 13.7 % (11.8-14.3)
[2024-11-06 10:00] LABS: Alanine Aminotransferase 23 U/L (7-40); Albumin 4.7 g/dL (3.2-4.8); Alkaline Phosphatase 52 U/L (46-116); Anion Gap 7 (5-15); Aspartate Aminotransferase 21 U/L (13-40); BUN/Creatinine Ratio 12.2 (10.0-20.0); Blood Urea Nitrogen 11 mg/dL (9-23); Calcium 9.6 mg/dL (8.7-10.4); Carbon Dioxide 29 mmol/L (20-31); Chloride 106 mmol/L (98-107); LDL Cholesterol 57 mg/dL (< 100); Potassium 4.3 mmol/L (3.5-5.1); Sodium 142 mmol/L (136-145); Total Protein 7.2 g/dL (5.7-8.2); Triglycerides 92 mg/dL (< 150)
[2024-11-06 10:01] LABS: Bilirubin, Total 0.8 mg/dL (0.2-1.0); Cholesterol 115 mg/dL (< 200); HDL Cholesterol 45 mg/dL (40-59)
[2024-11-06 10:02] LABS: Glucose 113 mg/dL (74-106)
[2024-11-06 10:03] LABS: Urine Blood 3+ /uL (Negative); Urine Clarity Clear (Clear); Urine Color Yellow (Yellow); Urine Mucus FEW (None Seen); Urine Protein, UAD Negative (Negative); Urine Specific Gravity 1.046 (1.001-1.035); Urine Squamous Epithelial Cell FEW /hpf (<5); Urine Urobilinogen Normal (Negative); Urine WBC 2 /HPF (0-3); Urine pH 5.5 (5.0-9.0)
[2024-11-06 10:53] LABS: Prostate Specific Antigen 0.34 ng/mL (0.0-4.0)
[2024-11-06 10:58] LABS: Free T4 (Free Thyroxine) 1.05 ng/dL (0.89-1.76)
== END | disposition home or self-care (01) ==
LOC: LAB 09:03
PROVIDERS: ATTEND Internal Medicine
DX: N40.0 Benign prostatic hyperplasia without lower urinary tract symptoms (principal); I10 Essential (primary) hypertension; I25.10 Atherosclerotic heart disease of native coronary artery without angina pectoris; E78.5 Hyperlipidemia, unspecified; R73.03 Prediabetes; Z00.01 Encounter for general adult medical examination with abnormal findings
CPT/HCPCS: 36415; 80053; 80061; 81001; 83036; 84153; 84439; 84443; 85025